=== PATIENT | female | born 1985 | race Caucasian/White ===

== ENCOUNTER 2017-10-09 08:11 | Emergency (ER) | payer OTHER ==
[2017-10-09] MEDS: IBUPROFEN 800 MG TAB PO (09:45)
[2017-10-09] MEDS: FLUORESCEIN STRIP LEFT EYE (12:00)
[2017-10-09] MEDS: TETRACAINE 0.5% 4 ML OPH LEFT EYE (12:49)
== END 2017-10-09 13:54 | disposition home or self-care (01) ==
LOC: FTE 08:11
DX: H57.8 Other specified disorders of eye and adnexa (principal); H57.12 Ocular pain, left eye; H53.8 Other visual disturbances
CPT/HCPCS: 76536; 99284-25